=== PATIENT | male | born 1985 | race Caucasian/White ===

== ENCOUNTER → 2018-08-17 | Outpatient (CLI) | payer OTHER ==
--- NOTE | 2018-08-17 13:19 | REP ---
Clinical: Left forearm pain. Technique: AP and lateral views. Findings: No acute fracture dislocation. Osseous structures, joint spaces, and surrounding soft tissues appear normal. Impression: Normal examination. Electronically Signed by Bhavin Manning MD 08/17/2018 01:10 P
--- NOTE | 2018-08-17 13:32 | REP ---
Clinical: Trauma. Fall down stairs . Technique: AP, lateral, bilateral oblique views of the left elbow. Findings: No acute fracture or dislocation is appreciated. Joint spaces and surrounding soft tissues appear normal. Lateral view demonstrates normal positioning to the anterior and posterior fat pads without evidence for effusion/hemarthrosis. No subcutaneous emphysema or foreign body identified. Impression: Normal left elbow radiographs. Electronically Signed by Bhavin Manning MD 08/17/2018 01:25 P
== END ==
LOC: M ADAMS 12:35
PROVIDERS: ATTEND Physician Assistant
DX: M25.522 Pain in left elbow (principal); M79.632 Pain in left forearm

== ENCOUNTER → 2020-01-17 | Outpatient (CLI) | payer MEDICARE, MEDICAID ==
[~2020-01-17] MED LIST: GLUCAGON INJ 1MG VIAL As Ordered ONE; ISOVUE-370 76% 100ML VIAL As Ordered ONE; VoLumen 0.1% SUSPENSION 450ML BOTTLE As Ordered ONE
--- NOTE | 2020-03-10 09:36 | REP ---
CT STUDY ENTEROGRAPHY WITH IV AND ORAL CONTRAST AGENTS: HISTORY: Abdominal pain and epigastric pain, nausea and vomiting. CONTRAST DOSE: Intravenous contrast was administered with 100 cc of intravenous Isovue 370. Intravenous Glucagon was given at 0.6 mg IV. Oral contrast agent was given with p.o. VoLumen. FINDINGS: Digital preliminary coal gasification technician radiograph is unremarkable. The bowel gas pattern is normal. The lung bases are clear on axial CT images. There is no evidence of pleural effusion or upper abdominal ascites. The liver and the spleen are normal in size, homogeneous in texture. No adrenal lesion is seen. No abnormality is noted in the pancreas. The gallbladder is unremarkable. The kidneys enhance symmetrically and are morphologically intact. There is an intrarenal calculus 3 mm in diameter in the lower pole collecting system of the left kidney. No hydronephrosis is seen. No retroperitoneal mass or adenopathy is seen. A normal appendix is visible in the right lower quadrant. There is no evidence of diverticulosis. There is no evidence of abnormal mural enhancement or bowel wall thickening. No obstructive lesion is seen. No abdominal wall defect is observed. The urinary bladder, prostate and seminal vesicles are unremarkable. Bone window settings show no acute bony abnormality. IMPRESSION: Intrarenal nephrolithiasis lower pole left kidney 3 mm calculus without hydronephrosis. Otherwise negative CT enterography. No CT evidence of inflammatory bowel disease. MTDD
== END ==
LOC: M RAD 09:15
PROVIDERS: ATTEND Specialist
DX: N20.0 Calculus of kidney (principal); R11.2 Nausea with vomiting, unspecified; R10.13 Epigastric pain
CPT/HCPCS: 74177; J1610; Q9967

== ENCOUNTER → 2021-06-29 | Outpatient (REF) | LOC: M LABSMTC 10:15 | PROVIDERS: ATTEND Pediatrics | DX: Z11.52 Encounter for screening for COVID-19 (principal); Z20.822 Contact with and (suspected) exposure to COVID-19 ==

== ENCOUNTER → 2021-07-16 | Outpatient (REF) | LOC: M LABSMTC 09:05 | PROVIDERS: ATTEND Pediatrics | DX: Z11.52 Encounter for screening for COVID-19 (principal); Z20.822 Contact with and (suspected) exposure to COVID-19 ==

== ENCOUNTER → 2021-12-28 | Outpatient (CLI) | payer MEDICARE, MEDICAID | LOC: M WHC 09:03 | PROVIDERS: ATTEND Nurse Practitioner Family | DX: D24.2 Benign neoplasm of left breast (principal); N63.20 Unspecified lump in the left breast, unspecified quadrant | CPT/HCPCS: 76642; 77066; G0279 ==

== ENCOUNTER 2022-09-30 17:37 | Emergency (ER) | payer MEDICARE, MEDICAID ==
[~2022-09-30] VITALS: Ht 170.2 cm; Wt 100.3 kg
[2022-09-30] MEDS ORDERED: ISOVUE-370 76% 100ML VIAL As Ordered ONE (19:46)
[2022-09-30 20:42] LABS: BASO % 0.2 % (0.0-1.0); EOS % 0.2 % (0.0-3.0); HEMATOCRIT 39.2 % (42.0-52.0); HEMOGLOBIN 13.7 g/dl (13.5-17.5); LYMPH # 2.8 10^3/uL (1.5-5.0); LYMPH % 16.2 % (24.0-44.0); MEAN CORPUSCULAR HEMOGLOBIN 29.8 pg (27.0-33.0); MEAN CORPUSCULAR HGB CONC 34.9 g/dl (32.0-36.5); MEAN CORPUSCULAR VOLUME 85.2 fl (80.0-96.0); MONO # 1.1 10^3/uL (0.0-0.8); MONO % 6.1 % (2.0-8.0); NEUTROPHILS # 13.3 10^3/uL (1.5-8.5); NEUTROPHILS % 76.8 % (36.0-66.0); PLATELET COUNT, AUTOMATED 234 10^3/uL (150-450); WHITE BLOOD COUNT 17.3 10^3/uL (4.0-10.0)
[2022-09-30] MEDS ORDERED: KETOROLAC 30 MG/ML 1ML VIAL IV ONE (21:00)
[2022-09-30 21:12] VITALS: BP 132/63
[2022-09-30 21:12] LABS: RSV AMPLIFICATION NEGATIVE (NEGATIVE)
== END 2022-09-30 21:15 | disposition short-term general hospital (02) ==
LOC: M ED 17:37
DX: S12.000A Unspecified displaced fracture of first cervical vertebra, initial encounter for closed fracture (principal); W22.8XXA Striking against or struck by other objects, initial encounter; Y92.89 Other specified places as the place of occurrence of the external cause; Y93.89 Activity, other specified; Y99.8 Other external cause status; H40.9 Unspecified glaucoma
CPT/HCPCS: 70450; 70486; 70498; 72125; 80047; 85025; 87631; 96374; 99285; J1885; Q9967

== ENCOUNTER → 2023-04-17 | Outpatient (CLI) | payer MEDICARE, MEDICAID | LOC: M RAD 07:20 | PROVIDERS: ATTEND Nurse Practitioner Adult Health | DX: R19.02 Left upper quadrant abdominal swelling, mass and lump (principal) ==

== ENCOUNTER → 2023-08-13 | Outpatient (CLI) | payer MEDICARE, MEDICAID | LOC: M WHC 10:48 | PROVIDERS: ATTEND Nurse Practitioner | DX: M81.0 Age-related osteoporosis without current pathological fracture (principal) ==

== ENCOUNTER → 2023-08-21 | Outpatient (CLI) | payer MEDICARE, MEDICAID | LOC: M SOG 07:52 | PROVIDERS: ATTEND Physician Assistant | DX: M25.562 Pain in left knee (principal) ==

== ENCOUNTER → 2023-09-18 | Outpatient (CLI) | payer MEDICARE, MEDICAID | LOC: M SOG 08:03 | PROVIDERS: ATTEND Physician Assistant | DX: M17.12 Unilateral primary osteoarthritis, left knee (principal) ==

== ENCOUNTER → 2023-10-21 | Outpatient (CLI) | payer MEDICARE, MEDICAID | LOC: M RAD 14:46 | PROVIDERS: ATTEND Nurse Practitioner | DX: S12.000S Unspecified displaced fracture of first cervical vertebra, sequela (principal) ==

== ENCOUNTER → 2024-04-10 | Outpatient (CLI) | payer MEDICARE, MEDICAID | LOC: M RAD 14:25 | PROVIDERS: ATTEND Nurse Practitioner | DX: A52.3 Neurosyphilis, unspecified (principal) ==

== ENCOUNTER → 2024-06-02 | Outpatient (CLI) | payer MEDICARE, MEDICAID | LOC: M RAD 08:32 | PROVIDERS: ATTEND Nurse Practitioner | DX: D38.1 Neoplasm of uncertain behavior of trachea, bronchus and lung (principal) ==